=== PATIENT | male | born 1985 | race Caucasian/White ===

== ENCOUNTER 2021-05-14 14:42 | Emergency (ER) | payer BC ==
--- NOTE | 2021-05-15 08:23 | CR ---
Date of Service: 05/14/20 Clinical Data: Trauma PELVIS AND LEFT HIP: No priors. No acute fracture or dislocation. No lytic or blastic bone lesions. No significant arthritic changes. [id number] [facility]
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
== END 2021-05-14 16:30 | disposition home or self-care (01) ==
LOC: LB.ED 14:42
DX: S30.0XXA Contusion of lower back and pelvis, initial encounter (principal); U07.1 COVID-19; X50.1XXA Overexertion from prolonged static or awkward postures, initial encounter
CPT/HCPCS: 73502-LT; 99283-25; U0002